=== PATIENT | male | born 1990 | race Caucasian/White ===

== ENCOUNTER → 2019-09-05 07:40 | Outpatient (CLI) | payer OTHER, SELFPAY ==
--- NOTE | 2019-09-05 | DI.MRI.S_ITS ---
PROCEDURE: MR KNEE RT WO CON INDICATIONS: other instability of right knee TECHNIQUE: Noncontrast sagittal PD fast spin echo and T2 fast spin echo with fat saturation, sagittal 3-D FLASH with fat saturation; coronal T1 spin echo and PD fast spin echo with fat saturation, and axial PD fast spin echo with fat saturation through the knee. COMPARISON: None. FINDINGS: Image quality: Excellent. Menisci: There is tearing of the posterior horn lateral meniscus at the meniscal root ligament insertion site, with displacement of a 9 mm diameter meniscal fragment slightly superiorly. The medial meniscus is intact. Cruciate ligaments: There is moderate attenuation of the anterior cruciate ligament which demonstrates mild posterior bowing, indicating high-grade partial-thickness tearing. Posterior cruciate ligament is intact. Medial structures: The medial collateral ligament appears intact. Visualized portions of the pes anserinus tendons appear normal. No abnormal bursal fluid. Lateral structures: The lateral collateral ligament, long and short heads of the biceps femoris tendon appear intact. The popliteus tendon appears normal. Iliotibial band appears normal. Anterior structures: The quadriceps and patellar tendons appear intact. Patellar alignment is normal. No femoral trochlear dysplasia or ventral trochlear prominence. No edema in the infrapatellar fat pad. Bones and cartilage: There is moderate ill-defined T2 signal elevation within the mid/posterior weightbearing aspect of the medial femoral condyle. Moderate ill-defined T2 signal elevation within the lateral femoral condyle and lateral tibial plateau. No displaced fracture. The cartilage of the medial and lateral femorotibial compartments, as well as the patellofemoral compartment, appears normal in thickness. Joint space: There is a moderate knee joint effusion. No Clemens's cyst. Normal appearing synovial plicae are incidentally noted. IMPRESSION: 1. High-grade partial-thickness tearing of the anterior cruciate ligament. 2. Contusions within the distal femur and proximal tibia. 3. Posterior horn medial meniscal tear with associated displacement of the meniscal fragment. 4. Knee joint effusion. Dictated by: Sandra Browne M.D. on 09/05/2019 at 10:52 Approved by: Sandra Browne M.D. on 09/05/2019 at 10:57
== END ==
PROVIDERS: Visit Provider Physician Assistant Medical
DX: M25.361 Other instability, right knee (principal); S83.511A Sprain of anterior cruciate ligament of right knee, initial encounter; S80.01XA Contusion of right knee, initial encounter; S83.241A Other tear of medial meniscus, current injury, right knee, initial encounter; M25.461 Effusion, right knee
CPT/HCPCS: 73721